=== PATIENT | female | born 1990 | race Hispanic/Latino ===

== ENCOUNTER 2017-06-19 20:26 | Emergency (ER) | payer OTHER ==
[2017-06-19 20:32] VITALS: O2SAT 99
--- NOTE | 2017-06-19 21:57 | ED PDOC ---
HPI: Psych/Substance Abuse Time Seen by Provider: 06/19/17 20:55 Chief Complaint (Nursing): Alcohol Ingestion Chief Complaint (Provider): Alcohol Intoxication ED Caveat: Intoxicated History Per: Patient History/Exam Limitations: intoxication Current Symptoms Are (Timing): Still Present Additional History Per: EMS Additional Complaint(s): Carmita is a 27 y/o female who was brought to the ED by EMS for public intoxication. Patient unable to give history due to intoxication. She has no complaints. PMD: None Provided Past Medical History Reviewed: Historical Data, Nursing Documentation, Vital Signs Vital Signs: Last Vital Signs Temp 98.3 F 06/19/17 20:30 Pulse 116 H 06/19/17 20:30 Resp 16 06/19/17 20:30 BP 150/100 H 06/19/17 20:30 Pulse Ox 99 06/19/17 20:30 - Family History Family History: States: Unknown Family Hx - Allergies Allergies/Adverse Reactions: Allergies Allergy/AdvReac Type Severity Reaction Status Date / Time No Known Allergies Allergy Verified 06/19/17 20:32 Review of Systems Review Of Systems: ROS cannot be obtained secondary to pt's inabilty to answer questions. Physical Exam - Reviewed Nursing Documentation Reviewed: Yes Vital Signs Reviewed: Yes - Physical Exam Appears: Positive for: Non-toxic, No Acute Distress Skin: Positive for: Normal Color Eye Exam: Positive for: Normal appearance Respiratory: Negative for: Respiratory Distress Extremity: Negative for: Pedal Edema, Deformity Neurologic/Psych: Positive for: Motor/Sensory Deficits (slurred speech) - ECG O2 Sat by Pulse Oximetry: 99 (RA) Pulse Ox Interpretation: Normal Medical Decision Making Medical Decision Making: Time: 20:55 Initial Impression: 27 y/o intoxicated female Initial Plan: --Alcohol serum --Urine drug screen --Urine --Accucheck Time: 22:30 --Responsible relative at bedside who wants to take the patient home Clinical Impression: Alcohol Intoxication Condition: Stable Scribe Attestation: Documented by Vaibhav Greene, acting as a scribe for Clovis Hicks MD Provider Scribe Attestation: All medical record entries made by the Scribe were at my direction and personally dictated by me. I have reviewed the chart and agree that the record accurately reflects my personal performance of the history, physical exam, medical decision making, and the department course for this patient. I have also personally directed, reviewed, and agree with the discharge instructions and disposition. Disposition - Clinical Impression Clinical Impression: Alcohol intoxication - Patient ED Disposition Is Patient to be Admitted: No Counseled Patient/Family Regarding: Studies Performed, Diagnosis - Disposition Disposition: Routine/Home Disposition Time: 22:30 Condition: STABLE Instructions: Alcohol Intoxication (ED) Forms: [facility] (Estonian)
[2017-06-19 22:37] VITALS: BP 122/65; PULSE 75; RESP 14; TEMP 97.9
== END 2017-06-19 22:45 | disposition home or self-care (01) ==
LOC: H.ER 20:26
DX: F10.129 Alcohol abuse with intoxication, unspecified (principal)